=== PATIENT | male | born 1970 | race Caucasian/White ===

== ENCOUNTER 2020-06-19 11:16 | Outpatient (REF) | payer OTHER, SELFPAY ==
[2020-06-19 15:18] LABS: Alanine Aminotransferase 49 U/L (0-40); Anion Gap 10 (12-20); Aspartate Amino Transferase 34 U/L (5-37); Blood Urea Nitrogen 19 mg/dL (9-16); Calcium 8.7 mg/dL (8.4-10.2); Carbon Dioxide 32 mmol/L (22-29); Chloride 103 mmol/L (96-108); Cholesterol 255 mg/dL; Estimated Glomerular Filt Rate > 60; Glucose Fasting 90 mg/dL (60-99); HDL Cholesterol 45 mg/dL; LDL Cholesterol Calculated 134 mg/dl; Potassium 4.3 mmol/l (3.3-5.1); Sodium 141 mmol/L (135-145); Triglycerides 381 mg/dL
[2020-06-19 15:27] LABS: TSH reflex Free T4 1.56 mIU/mL (0.32-4.0)
[2020-06-24 12:02] LABS: Testosterone, Total 9 ng/dL (250-1100)
== END 2020-06-19 11:17 | disposition home or self-care (01) ==
LOC: HO.HMGCLDS 11:16
PROVIDERS: PCP Internal Medicine; Visit Provider Internal Medicine
DX: Z00.01 Encounter for general adult medical examination with abnormal findings (principal); R68.82 Decreased libido; F90.0 Attention-deficit hyperactivity disorder, predominantly inattentive type; F11.282 Opioid dependence with opioid-induced sleep disorder
CPT/HCPCS: 80048; 80061; 84403; 84443; 84450; 84460

== ENCOUNTER → 2020-09-11 11:19 | Outpatient (BNVA) | payer OTHER, SELFPAY | PROVIDERS: Visit Provider Urology ==

== ENCOUNTER 2020-11-23 11:14 | Outpatient (REF) | payer OTHER, SELFPAY ==
[2020-11-23 14:45] LABS: Cholesterol 186 mg/dL; HDL Cholesterol 44 mg/dL; LDL Cholesterol Calculated 124 mg/dl; Triglycerides 93 mg/dL
== END 2020-11-23 11:15 | disposition home or self-care (01) ==
LOC: HO.HMGCLDS 11:14
PROVIDERS: PCP Internal Medicine; Visit Provider Internal Medicine
DX: E78.2 Mixed hyperlipidemia (principal)
CPT/HCPCS: 36415; 80061

== ENCOUNTER 2023-09-22 09:24 | Outpatient (AMB) | payer OTHER, SELFPAY ==
[2023-09-22 10:50] VITALS: BP 142/80; PULSE 83; O2SAT 96; BMI 41.5
--- NOTE | 2023-09-22 10:50 | A.OFFPC_ITS ---
Vital Signs 09/22/23 10:50 Height 5 ft 7 in Weight 265 lb BMI 41.5 BP 142/80 H Blood Pressure Location Lt brachial Position Sitting Pulse 83 Pulse Source Pulse Oximeter Pulse Oximetry (%) 96 Oxygen Delivery Method Room Air Intake Visit Reasons: Follow up Intake Note: Pt is here today for his medication reivew f/u adnd HTN Allergies hydrochlorothiazide Adverse Reaction (Verified 09/22/23 11:30) itchy throat Medication List - Last Reconciled 09/22/23 by Kristal Pinon MD amlodipine 5 mg PO DAILY cholecalciferol (vitamin D3) 50 mcg PO DAILY clonidine HCl 0.2 mg PO BID furosemide 40 mg PO DAILY methadone 100 mg PO DAILY oxybutynin chloride 5 mg PO TID testosterone 1 packet transdermal DAILY Tobacco use date assessed: 09/22/23 Dental Screening Dental Screen Date: 09/22/23 Did you have a dental visit in the last 12 months?: No Was dental information given to patient?: No HPI Follow up HPI Details 52-year-old male, here today for follow- up after recent admission at [facility] for fluid overload, suspect acute heart failure. He presentedat the ER for with exertional dyspnea associated with orthopnea and bilateral lower extremity leg swelling and weight gain. Denied any episodes of chest pain, no fever or cough, but has been having difficulty sleeping for longer than 1 and half to 2 hours before waking up feeling breathless. He also has been told that he snores a lot and has had witnessed episodes of stopping breathing when sleeping. He was started on IV Lasix and prescribed or p.o. Lasix 40 mg twice a day for 2 days and then once a day . He has hypertension, obesity, marijuana use and history of polysubstance abuse currently on methadone clinic. He was discharged on Lasix and continued on amlodipine 5 mg daily for blood pressure control. He was referred to Dr. Yaya kerns for cardiology follow-up and outpatient echocardiogram, needs a referral. Is currently in the methadone clinic, complains of constipation, would like to see if he can be placed on something else other than Senokot and [id number] Colace which she has been using, and has not been helping. He also has been complaining for excessive sweating, previously placed by his doctor at the methadone clinic on oxybutynin for hyperhidrosis which has been helping, would like to see if he can get a refill. [facility] Medical History (Updated 09/22/23 @ 12:09 by Kristal Pinon MD) Constipation due to opioid therapy Acute heart failure Hyperhidrosis Acquired deformity of nail Fatigue Excessive daytime sleepiness Sleep disturbance HTN (hypertension) Nasal congestion with rhinorrhea Conjunctivitis of both eyes History of opioid abuse Low testosterone level in male Mixed hyperlipidemia Attention deficit disorder Surgical History History of knee surgery Family History Father Hypogonadism Mother SAIRA (generalized anxiety disorder) Mental health disorder Brother No problems noted. Maternal Aunt Mental health disorder Social History Housing: House Alcohol intake: current Alcohol intake frequency: a few times a month Patient Tobacco Use Status: Former Tobacco user Years Smoked: 20 yrs e-Cigarette/Vaping Use: Currently Using service: No Current occupational status: employed Cognitive needs: No Hearing needs: No Vision needs: No Questionnaire PHQ-9 Over the last 2 weeks, how often have you been bothered by any of the following problems? 1. Little interest or pleasure in doing things: several days 2. Feeling down, depressed, or hopeless: not at all 3. Trouble falling or staying asleep, or sleeping too much: nearly every day 4. Feeling tired or having little energy: more than half the days 5. Poor appetite or overeating: more than half the days 6. Feeling bad about yourself - or that you are a failure or have let yourself or your family down: several days 7. Trouble concentrating on things, such as reading the newspaper or watching television: several days 8. Moving or speaking so slowly that other people could have noticed. Or the opposite - being so fidgety or restless that you have been moving around a lot more than usual: not at all 9. Thoughts that you would be better off or of hurting yourself in some way: not at all Total score: 10 Depression Screening Interpretation: Positive Depression Screening Follow-up: Existing condition, In treatment and Community Mental Health Worker F/U Depression Screening Done: Yes 98179 - PHQ-9 Billing: Yes Source: Developed by Drs. Siva Monroy, Lawanda Martinez, Solo Silver and colleagues, with an educational andreia from [employer]. Thrive Questionnaire Date Thrive assessed: 09/22/23 I am a: Patient What is your living situation today?: I have a steady place to live Within the past 12 months, did the food you bought not last and you didn't have the money to get more?: Never true Within the past 12 months, did you worry whether your food would run out before you got money to buy more?: Never true Do you have trouble paying for medicines?: No Do you have trouble getting transportation to medical appointments?: Yes Do you have trouble paying your heating and electricity bill?: No Do you have trouble taking care of your child, family member or friend?: No Do you have trouble with day-to-day activities such as bathing, preparing meals, shopping, managing finances, etc.?: No Are you currently unemployed and looking for a job?: No Are you interested in more education?: No THRIVE Score: 1 AUDIT C Alcohol Use Questionnaire (AUDIT-C) 1. How often do you have a drink containing alcohol?: Never Total Score: 0 SAIRA-7 AMB Questionnaire SAIRA-7 Date SAIRA - 7 assessed: 09/22/23 Feeling nervous, anxious, or on edge: 1 = Several days Not being able to stop or control worryin = Several days Worrying too much about different things: 1 = Several days Trouble relaxin = More than half the days Being so restless that it is hard to sit still: 2 = More than half the days Becoming easily annoyed or irritable: 0 = Not at all Feeling afraid as if something awful might happen: 1 = Several days Total SAIRA-7 score (0-4 normal; 5-9 mild; 10-14 moderate; 15-21 severe): 8 Source: Developed by Drs. Siva Monroy, Lawanda Martinez, Solo Silver and colleagues, with an educational andreia from [employer]. SAIRA-7 Assessment Billing SAIRA-7 Assessment Tool: SAIRA-7 Assessment 14680 Review of Systems Const Reports no additional complaints Eyes Denies change in vision ENT Denies nasal congestion, Denies post nasal drip, Denies sinus pain, Denies sinus pressure and Denies sore throat Card Denies chest pain, Denies rapid heart rate and Denies dyspnea Resp Denies cough and Denies dyspnea GI Reports no additional complaints Musc Reports no additional complaints Neuro Reports no additional complaints Psych Reports no additional complaints Endo Reports no additional complaints Feliciano/Lymph Reports no additional complaints Physical exam (Primary Care) Vital Signs: Last Vital Signs Pulse 83 09/22/23 10:50 BP 142/80 H 09/22/23 10:50 Pulse Ox 96 09/22/23 10:50 Oxygen Delivery Method Room Air 09/22/23 10:50 BMI result Body Mass Index 41.5 BMI Assessment/Plan discussion: High BMI High, discussed plan: lifestyle, weight reduction, dietary and physical activity Tobacco/Smoking Status: Tobacco use Status Tobacco use date assessed 09/22/23 09/22/23 11:03 Patient Tobacco Use Status Former Tobacco user 09/22/23 10:51 e-Cigarette/Vaping Use Currently Using 09/22/23 10:51 PHQ-9: PHQ-9 Score PHQ-9: Total score 10 09/24/23 20:59 Depression Screening Interpretation: Positive Depression Screening Follow-up: Existing condition, In treatment and Community Mental Health Worker F/U Thrive Assessment: Date of Thrive Assessment Date Thrive assessed 09/22/23 09/22/23 14:18 Const Other: Obese, Alert oriented x3, no acute cardiorespiratory distress, ambulatory normal gait Orientation/consciousness: patient oriented x3 HENMT Other: Normocephalic atraumatic, sinus nontender to palpation, moist oral mucosa been normal refer Neck Other: Supple, full range of motion, no lymphadenopathy palpated , thyroid gland nonpalpable Resp Other: Clear to auscultation bilaterally Cardio Other: S1-S2 present regular rate and rhythm GI Other: Normal bowel sounds, soft, nontender with no mass palpated Skin Nails: yellow and thickened Neuro General: patient oriented x3, gait normal, moves all extremities and no focal motor deficits Extrem General: Yes full ROM, Yes no joint enlargement, Yes no clubbing, cyanosis or edema, Yes no calf tenderness and Yes normal gait Psych Appearance: grossly normal Mental Status: mental status grossly normal Speech and movement: Normal speech and movement present Affect: normal affect Attitude: cooperative Thought process: Normal thought process present Assessment and Plan Assessment & Plan (1) HTN (hypertension): Code(s): I10 - Essential (primary) hypertension Plan: Blood pressure still elevated and not at goal. Continued on furosemide 40 mg daily, amlodipine 5 mg once a day and started on losartan 25 mg once a day. Patient also on clonidine which will help lower blood pressure. Referred to Dr. Eduard Landaverde , for evaluation of possible heart failure. (2) Sleep disturbance: Code(s): G47.9 - Sleep disorder, unspecified Plan: Referred to sleep medicine clinic for evaluation for obstructive sleep apnea. Weight loss through diet and exercise strongly advised. (3) Hyperhidrosis: Code(s): R61 - Generalized hyperhidrosis Plan: Prescribed oxybutynin by his provider at the methadone Clinic, refill sent (4) Excessive daytime sleepiness: Code(s): G47.19 - Other hypersomnia Plan: Referred to sleep medicine clinic in [facility] for further evaluation of sleep apnea (5) Witnessed apneic spells: Code(s): R06.81 - Apnea, not elsewhere classified Plan: Referred for sleep study (6) Constipation due to opioid therapy: Code(s): K59.03 - Drug induced constipation; T40.2X5A - Adverse effect of other opioids, initial encounter Plan: Prescription sent for Amitiza 6 8 mcg per tablet to take once a day. Advised regular exercise, stay well-hydrated, and eat a high-fiber diet Orders: Referrals Sleep Medicine Referral G47.19 - Other hypersomnia, G47.20 - Circadian rhythm sleep disorder, unspecified type, R06.81 - Apnea, not elsewhere classified, R06.83 - Snoring Cardiology Referral G47.9 - Sleep disorder, unspecified, I50.9 - Heart failure, unspecified Medications: New oxybutynin chloride 5 mg PO TID 90 tabs 0RF R61 - Generalized hyperhidrosis lubiprostone (Amitiza) 8 mcg PO DAILY 30 caps 0RF K59.03 - Drug induced constipation, T40.2X5A - Adverse effect of other opioids, initial encounter losartan 25 mg PO DAILY 30 tabs 0RF Coding Level of Care Code Est Pt Level 4 (93856) Diagnoses HTN (hypertension) I10 Sleep disturbance G47.9 Hyperhidrosis R61 Excessive daytime sleepiness G47.19 Witnessed apneic spells R06.81 Constipation due to opioid therapy K59.03; T40.2X5A Additional Codes SAIRA-7 Assessment Billing - SAIRA-7 Assessment Tool: SAIRA-7 Assessment 20719 ([id number])
== END 2023-09-22 12:13 | disposition home or self-care (01) ==
PROVIDERS: PCP Internal Medicine; Visit Provider Internal Medicine
DX: I10 Essential (primary) hypertension (principal); G47.9 Sleep disorder, unspecified; R61 Generalized hyperhidrosis; G47.19 Other hypersomnia; R06.81 Apnea, not elsewhere classified; K59.03 Drug induced constipation; T40.2X5A Adverse effect of other opioids, initial encounter
CPT/HCPCS: 99214

== ENCOUNTER 2023-10-19 10:42 | Outpatient (AMB) | payer OTHER, SELFPAY ==
--- NOTE | 2023-10-19 10:56 | MHC.OFFVIS ---
Intake Vital Signs 10/19/23 11:00 Height 5 ft 7 in Weight 250 lb BMI 39.2 BP 120/82 Blood Pressure Location Rt brachial Position Sitting Pulse 55 Pulse Source Pulse Oximeter Pulse Oximetry (%) 99 Oxygen Delivery Method Room Air Intake Visit Reasons: 09/26 -LTR /10/04 LVM-LTR) INP-Snoring/Apnea-Conf Intake Note: Patient presents for apnea and snoring. Patient has problems falling asleep and having a lot of anxiety.daytime drowsiness due to not sleeping well. Allergies hydrochlorothiazide Adverse Reaction (Verified 10/19/23 11:02) itchy throat Medication List - Last Reconciled 10/19/23 by Lucita Guido, CARINA amlodipine 5 mg PO DAILY cholecalciferol (vitamin D3) 50 mcg PO DAILY clonidine HCl 0.2 mg PO BID furosemide 40 mg PO DAILY losartan 25 mg PO DAILY lubiprostone (Amitiza) 8 mcg PO DAILY methadone 100 mg PO DAILY oxybutynin chloride 5 mg PO TID testosterone 1 packet transdermal DAILY testosterone cypionate mg IM HPI HPI Comments History of Present Illness Details 52yr-old male presents for new in-person patient visit for sleep consultation. Patient reports he has had sleep difficulties for a long time, however they are worse in the last few months but he is unsure why. Past medical history includes ADD, anxiety, tinnitus, HTN. Sleep questionnaire: Have you ever been diagnosed with a sleep disorder? No Have you ever had a sleep study in the past? No Have you ever been treated for a sleep disorder? Sleep medication trials. Do you take medications for a sleep disorder? Clonidine, not helping sleep, but helps his anxiety. Are you melatonin did not help. Trazodone was not tolerated. Patient endorses: Difficulty falling asleep- at times due to ruminating thoughts, difficulty staying asleep, snoring, 3-5 arousals per night, some gasping arousals, vivid dreams, excessive daytime sleepiness, fatigue, daytime naps, restless leg symptoms, some light headaches in the morning, leg cramping. Patient denies no witnessed apneas, GERD, parasomnias, hallucinations, sleep paralysis, drop attacks, cataplexy symptoms. Sleep hygiene questionnaire: What is your usual sleep routine? Usual bedtime is at 22:00; Usual wakeup time is at 6-7am. Do you take naps? Sometimes Is your sleep environment cool, dark, and quiet? Yes. Uses aroma therapy. Currently living in sober housing. Do you exercise? Walks a lot at work. Do you take caffeine or other stimulants? Light morning caffeine use. What is your work schedule? Day shift. Hypersomnolence questionnaire: Do you easily fall asleep when inactive? Yes Have you ever had episodes of sudden weakness? Denies Have you ever had episodes of sudden weakness associated with strong emotions? Denies [facility] Medical History (Updated 11/12/23 @ 16:45 by CARINA Zuluaga) Constipation due to opioid therapy Acute heart failure Hyperhidrosis Acquired deformity of nail Fatigue Excessive daytime sleepiness Sleep disturbance HTN (hypertension) Nasal congestion with rhinorrhea Conjunctivitis of both eyes History of opioid abuse Low testosterone level in male Mixed hyperlipidemia Attention deficit disorder Surgical History History of knee surgery Family History Father Hypogonadism Mother SAIRA (generalized anxiety disorder) Mental health disorder Brother No problems noted. Maternal Aunt Mental health disorder Social History Housing: House Alcohol intake: current Alcohol intake frequency: a few times a month Patient Tobacco Use Status: Former Tobacco user Years Smoked: 20 yrs e-Cigarette/Vaping Use: Currently Using service: No Current occupational status: employed Cognitive needs: No Hearing needs: No Vision needs: No Questionnaire [place] Sleepiness Scale Questions Sitting and reading: high chance of dozing Watching TV: high chance of dozing Sitting inactive in a theater, movie etc.: high chance of dozing As a passenger in a car for an hour without break: would never doze Lying down in the afternoon when circumstances permit: high chance of dozing Sitting and talking to someone: would never doze Sitting quietly after lunch without alcohol: high chance of dozing In a car, while stopped for a few minutes in the traffic: would never doze ESS < 10: normal, ESS > 12: pathologic: 15 Review of Systems Const All systems reviewed & are unremarkable except as noted in HPI and below Physical Exam Vital Signs: Last Vital Signs Pulse 55 10/19/23 11:00 BP 120/82 10/19/23 11:00 Pulse Ox 99 10/19/23 11:00 Oxygen Delivery Method Room Air 10/19/23 11:00 BMI result Body Mass Index 39.2 Const General: no acute distress Orientation/consciousness: patient oriented x3 HEENT Other: Mallampati stage IV Resp Effort & Inspection: able to speak in complete sentences Neuro General: patient oriented x3 Psych Mental Status: mental status grossly normal Speech and movement: Clear speech present Attitude: cooperative Assessment & Plan Assessment & Plan (1) Excessive daytime sleepiness: Comment: ESS 15 Code(s): G47.19 - Other hypersomnia (2) Sleep disturbance: Code(s): G47.9 - Sleep disorder, unspecified (3) Fatigue: Code(s): R53.83 - Other fatigue Plan Patient is advised to undergo HST to assess for sleep apnea. Information shared on resources to help further improve sleep hygiene. May retry melatonin 5-10mg qd, try taking in the evening after dinner. Future considerations: CBT-i. Patient seen in collaboration with Dr. Summer Egan. Orders: Orders RT home sleep study 10/19/23 G47.19 - Other hypersomnia, G47.9 - Sleep disorder, unspecified, R53.83 - Other fatigue Telehealth Telehealth Location of provider rendering services: practice address Location of patient: address on file Patient Identification confirmed using: Name, : Yes Telehealth method: voice only Patient verbally consented to treatment: Yes Patient verbally consented to billing insurance company: Yes Patient informed of any privacy concerns related to visit: Yes Coding Level of Care Code New Pt Level 4 (24283) Diagnoses Excessive daytime sleepiness G47.19 Sleep disturbance G47.9 Fatigue R53.83
[2023-10-19 11:00] VITALS: BP 120/82; PULSE 55; O2SAT 99; BMI 39.2
== END 2023-10-19 12:07 | disposition home or self-care (01) ==
PROVIDERS: PCP Internal Medicine; Visit Provider Nurse Practitioner Family
DX: G47.19 Other hypersomnia (principal); G47.9 Sleep disorder, unspecified; R53.83 Other fatigue
CPT/HCPCS: 99204

== ENCOUNTER → 2023-10-19 10:42 | Outpatient (BNVA) | payer OTHER, SELFPAY | PROVIDERS: PCP Internal Medicine; Visit Provider Nurse Practitioner Family ==

== ENCOUNTER 2023-12-21 13:19 | Outpatient (AMB) | payer OTHER, SELFPAY ==
[2023-12-21 13:40] VITALS: BP 120/80; PULSE 83; O2SAT 94; BMI 37.4
--- NOTE | 2023-12-21 13:40 | MHC.PC.OV ---
Vital Signs 12/21/23 13:40 Height 5 ft 7 in Weight 239 lb BMI 37.4 BP 120/80 Blood Pressure Location Lt brachial Position Sitting Pulse 83 Pulse Source Pulse Oximeter Pulse Oximetry (%) 94 Oxygen Delivery Method Room Air Intake Visit Reasons: Weight loss medication Intake Note: Pt is here today c/o of cough congestion and wants to discuss weight loss med Allergies hydrochlorothiazide Adverse Reaction (Verified 12/21/23 14:19) itchy throat Medication List - Last Reconciled 12/21/23 by Kristal Pinon MD amlodipine 5 mg PO DAILY azithromycin For 250 mg dose pack: take 500 mg today (day 1), then 250 mg for 4 days (days 2-5) PO cholecalciferol (vitamin D3) 50 mcg PO DAILY clonidine HCl 0.2 mg PO BID furosemide 40 mg PO DAILY glycopyrrolate 1 mg PO BID PRN losartan 25 mg PO DAILY lubiprostone (Amitiza) 8 mcg PO DAILY methadone 100 mg PO DAILY oxybutynin chloride 5 mg PO TID testosterone cypionate mg IM Wegovy (semaglutide (weight loss)) 0.25 mg (0.5 mL) subcut QWEEK 30 days NS Tobacco use date assessed: 12/21/23 Dental Screening Dental Screen Date: 12/21/23 Did you have a dental visit in the last 12 months?: No Was dental information given to patient?: Patient declined HPI Weight loss medication HPI Details 53-year-old male with obesity, BMI of 37.4, here today wanting to see if he can be placed on Wegovy. He has been following a good diet, and has been walking daily, able to lost approximately 16 lb in the last month but has plateaued. Complains of hyperhidrosis, would like to see if he can get prescription for glycopyrrolate, has been on it in the past and has helped Has 2 weeks' history of cough and chest congestion now accompanied by shortness of breath on exertion and wheezing. Has been taking [id number] Mucinex which affords only temporary relief. Denies any accompanying fever, no lightheadedness. [facility] Medical History (Updated 12/21/23 @ 14:26 by Kristal Pinon MD) Obesity Constipation due to opioid therapy Acute heart failure Hyperhidrosis Acquired deformity of nail Fatigue Excessive daytime sleepiness Sleep disturbance HTN (hypertension) Nasal congestion with rhinorrhea Conjunctivitis of both eyes History of opioid abuse Low testosterone level in male Mixed hyperlipidemia Attention deficit disorder Surgical History History of knee surgery Family History Father Hypogonadism Mother SAIRA (generalized anxiety disorder) Mental health disorder Brother No problems noted. Maternal Aunt Mental health disorder Social History Housing: House Alcohol intake: current Alcohol intake frequency: a few times a month Patient Tobacco Use Status: Former Tobacco user Years Smoked: 20 yrs e-Cigarette/Vaping Use: Currently Using service: No Current occupational status: employed Cognitive needs: No Hearing needs: No Vision needs: No Questionnaire Thrive Questionnaire Date Thrive assessed: 09/22/23 SAIRA-7 AMB Questionnaire SAIRA-7 Date SAIRA - 7 assessed: 09/22/23 Source: Developed by Drs. Siva Monroy, Lawanda Martinez, Solo Silver and colleagues, with an educational andreia from [employer]. Review of Systems Const Reports no additional complaints and Reports excessive sweating Eyes Denies change in vision ENT Denies nasal congestion, Denies post nasal drip, Denies sinus pain and Denies sore throat Card Denies chest pain and Denies dyspnea Resp Reports as per HPI and Denies dyspnea Musc Reports no additional complaints Neuro Reports no additional complaints Psych Reports no additional complaints Endo Reports no additional complaints and Reports excessive sweating Feliciano/Lymph Reports no additional complaints Physical exam (Primary Care) Vital Signs: Last Vital Signs Pulse 83 12/21/23 13:40 BP 120/80 12/21/23 13:40 Pulse Ox 94 12/21/23 13:40 Oxygen Delivery Method Room Air 12/21/23 13:40 BMI result Body Mass Index 37.4 Tobacco/Smoking Status: Tobacco use Status Tobacco use date assessed 12/21/23 12/21/23 13:45 Patient Tobacco Use Status Former Tobacco user 12/21/23 13:45 e-Cigarette/Vaping Use Currently Using 12/21/23 13:45 Thrive Assessment: Date of Thrive Assessment Date Thrive assessed 09/22/23 12/21/23 13:45 Const Other: Obese, Alert oriented x3, no acute cardiorespiratory distress, ambulatory normal gait Orientation/consciousness: patient oriented x3 HENMT Other: Normocephalic atraumatic, sinus nontender to palpation, moist oral mucosa been normal refer Neck Other: Supple, full range of motion, no lymphadenopathy palpated , thyroid gland nonpalpable Resp Effort & Inspection: normal respiratory effort and able to speak in complete sentences Auscultation: wheezes scattered wheezes Cardio Other: S1-S2 present regular rate and rhythm GI Other: Normal bowel sounds, soft, nontender with no mass palpated Neuro General: patient oriented x3, gait normal, moves all extremities and no focal motor deficits Extrem General: Yes full ROM, Yes no joint enlargement, Yes no clubbing, cyanosis or edema, Yes no calf tenderness and Yes normal gait Psych Appearance: grossly normal Mental Status: mental status grossly normal Speech and movement: Normal speech and movement present Affect: normal affect Attitude: cooperative Thought process: Normal thought process present Assessment and Plan Assessment & Plan (1) Obesity: Code(s): E66.9 - Obesity, unspecified Qualifiers: Obesity type: due to excess calories Obesity classification: adult class 2 (BMI 35 - 39.9) Serious obesity comorbidity presence: without serious comorbidity Body mass index: BMI 37.0-37.9 Qualified Code(s): E66.09 - Other obesity due to excess calories; Z68.37 - Body mass index [BMI] 37.0-37.9, adult Plan: Started on Wegovy, 0.25 mg subcutaneously given once a week for 4 weeks discussed possible side effects of medication, discontinue if any severe abdominal pain, nausea vomiting jaundice develops. Combined with diet and exercise, see me back for follow-up in 4 weeks after starting medication (2) Hyperhidrosis: Code(s): R61 - Generalized hyperhidrosis Plan: Prescription sent for glycopyrrolate 1 mg per tablet to take 1 tablet twice a day as needed for excessive sweating (3) Acute bronchitis: Code(s): J20.9 - Acute bronchitis, unspecified Qualifiers: Bronchitis organism: unspecified organism Qualified Code(s): J20.9 - Acute bronchitis, unspecified Plan: Prescription sent for azithromycin Dosepak, to take as directed, return to clinic if after a week no improvement of symptoms Medications: New Wegovy (semaglutide (weight loss)) administer weeks 1 through 4 of therapy 0.25 mg (0.5 mL) subcut QWEEK 30 days 2 mL 0RF NS E66.9 - Obesity, unspecified glycopyrrolate 1 mg PO BID PRN 60 tabs 0RF secretions azithromycin For 250 mg dose pack: take 500 mg today (day 1), then 250 mg for 4 days (days 2-5) PO 6 tabs 0RF Coding Level of Care Code Est Pt Level 4 (23635) Diagnoses Class 2 obesity due to excess calories without serious comorbidity with body mass index (BMI) of 37.0 to 37.9 in adult E66.09; Z68.37 Obesity type: due to excess calories Obesity classification: adult class 2 (BMI 35 - 39.9) Serious obesity comorbidity presence: without serious comorbidity Body mass index: BMI 37.0-37.9 Hyperhidrosis R61 Acute bronchitis, unspecified organism J20.9 Bronchitis organism: unspecified organism
== END 2023-12-21 14:48 | disposition home or self-care (01) ==
PROVIDERS: PCP Internal Medicine; Visit Provider Internal Medicine
DX: E66.09 Other obesity due to excess calories (principal); Z68.37 Body mass index [BMI] 37.0-37.9, adult; R61 Generalized hyperhidrosis; J20.9 Acute bronchitis, unspecified
CPT/HCPCS: 99214

== ENCOUNTER 2025-02-04 10:11 | Outpatient (REF) | payer MEDICAID, SELFPAY ==
[2025-02-04 13:03] LABS: MANUAL DIFF FLAG NO
[2025-02-04 13:15] LABS: Hematocrit 42.0 % (42.0-52.0); Hemoglobin 13.7 g/dl (14.0-18.0); Imm Gran Abs Auto 0.03 X10*3/uL (0.00-0.03); Imm Gran Pct Auto 0.6 % (0.0-0.4); Lymphocytes Absolute Auto 2.0 X10*3/uL (1.2-4.9); Mean Corpuscular HGB Conc 32.6 g/dl (31.0-36.0); Mean Corpuscular Hemoglobin 31.4 pg (27.0-33.0); Mean Corpuscular Volume 96.3 fL (80.0-98.0); NRBC Abs Auto 0.000 X10*3/uL (0.0-0.012); NRBC Pct Auto 0.0 /100WBC (0.0-0.2); Platelet Count 229 X10*3/uL (160-400); Red Blood Count 4.36 X10*6/uL (4.60-5.80); White Blood Count 4.9 X10*3/uL (4.8-10.8)
[2025-02-04 13:51] LABS: Alanine Aminotransferase 26 U/L (0-40); Albumin Level 4.7 g/dL (3.5-5.0); Alkaline Phosphatase 57 U/L (39-117); Anion Gap 14 (12-20); Aspartate Amino Transferase 25 U/L (5-37); Blood Urea Nitrogen 17 mg/dL (9-16); Calcium 9.4 mg/dL (8.4-10.2); Carbon Dioxide 33 mmol/L (22-29); Chloride 100 mmol/L (96-108); Cholesterol 238 mg/dL (<200); Estimated Glomerular Filt Rate > 60; HDL Cholesterol 52 mg/dL (>40); Potassium 4.1 mmol/L (3.3-5.1); Sodium 143 mmol/L (135-145); Total Protein 7.5 g/dL (6.5-8.0); Triglycerides 158 mg/dL (<150)
== END 2025-02-04 10:12 | disposition home or self-care (01) ==
LOC: HO.HHCL 10:11
PROVIDERS: PCP Internal Medicine; Visit Provider Internal Medicine
DX: F98.8 Other specified behavioral and emotional disorders with onset usually occurring in childhood and adolescence (principal); E78.2 Mixed hyperlipidemia; E66.09 Other obesity due to excess calories; Z68.37 Body mass index [BMI] 37.0-37.9, adult; K59.03 Drug induced constipation; T40.2X5A Adverse effect of other opioids, initial encounter; R53.83 Other fatigue; I10 Essential (primary) hypertension
CPT/HCPCS: 36415; 80053; 80061; 82306; 84443; 85025

== ENCOUNTER 2025-05-12 09:35 | Outpatient (REF) | payer MEDICAID, SELFPAY ==
--- OUTSIDE RECORDS SUMMARY | 2025-05-12 11:00 | XMS_ITS | Clinical Summary ---
Author Organization [employer] [facility] Address [address] [place] [address] Care Team Providers Care Tight Cooper Name Role Phone Unavailable Primary Care Provider Unavailabl e Encounters Date Type Department Care Team Description 04/09/2025 Population Health Risk Score [facility] (C3) Department [address] [place] [address] Provider, Population Health Generic from Last 3 Months Social History Tobacco Use Types Packs/Day Years Used Date Smoking Tobacco: Never Assessed Sex and Gender Information Value Date Recorded Sex Assigned at Not on file Legal Sex Male 2:42 AM EDT Gender Identity Not on file Sexual Orientation Not on file Plan of Treatment Health Maintenance Due Date Last Done Comments CT Colonography 1971 Colonoscopy 1971 Colorectal Cancer Screening 1971 Depression Screening 1971 FIT DNA/Cologuard 1971 FIT 1971 FOBT 1971 HIV Screening 1971 Lipid Panel 1971 SDOH Screening 1971 Sigmoidoscopy 1971 Disability Screening 1971 Alcohol/Substance Use Screening 1983 Tobacco Screening 1983 Hepatitis C Screening 11/15/1989 DTaP/Tdap/Td Vaccines (1 - Tdap) 11/15/1990 Hepatitis B Vaccines (1 of 3 - 19+ 3-dose series) 11/15/1990 Pneumococcal Vaccine: 50+ Ye ars (1 of 1 - PCV) 11/15/2021 Zoster Vaccines (1 of 2) 11/15/2021 COVID-19 Vaccine (1 - 2023-2 5 season) 2025 Influenza Vaccine (#1) 2025 RSV Patients and Pa tients Aged 60 years or older (1 - 1-dose 75+ series) 11/15/2046 HIB Vaccines Aged Out No longer eligi ble based on patient's age to complete this topic HPV Vaccines Aged Out No longer eligi ble based on patient's age to complete this topic Hepatitis A Vaccines Aged Out No long er eligible based on patient's age to complete this topic IPV Vaccines Aged Out No longer eligi ble based on patient's age to complete this topic Meningococcal B Vaccine Aged Out No l onger eligible based on patient's age to complete this topic Meningococcal Vaccine Aged Out No saad asad eligible based on patient's age to complete this topic RSV under 20 months Aged Out No longe r eligible based on patient's age to complete this topic Rotavirus Vaccines Aged Out No longer eligible based on patient's age to complete this topic
[2025-05-12 11:24] LABS: MANUAL DIFF FLAG NO
[2025-05-12 11:33] LABS: Hematocrit 39.6 % (42.0-52.0); Hemoglobin 13.0 g/dl (14.0-18.0); Imm Gran Abs Auto 0.01 X10*3/uL (0.00-0.03); Imm Gran Pct Auto 0.2 % (0.0-0.4); Lymphocytes Absolute Auto 2.9 X10*3/uL (1.2-4.9); Mean Corpuscular HGB Conc 32.8 g/dl (31.0-36.0); Mean Corpuscular Hemoglobin 30.4 pg (27.0-33.0); Mean Corpuscular Volume 92.5 fL (80.0-98.0); NRBC Abs Auto 0.000 X10*3/uL (0.0-0.012); NRBC Pct Auto 0.0 /100WBC (0.0-0.2); Platelet Count 244 X10*3/uL (160-400); Red Blood Count 4.28 X10*6/uL (4.60-5.80); White Blood Count 5.9 X10*3/uL (4.8-10.8)
[2025-05-12 11:48] LABS: Cholesterol 195 mg/dL (<200); HDL Cholesterol 53 mg/dL (>40); Triglycerides 87 mg/dL (<150)
== END 2025-05-12 09:36 | disposition home or self-care (01) ==
LOC: HO.HHCL 09:35
PROVIDERS: PCP Internal Medicine; Visit Provider Internal Medicine Endocrinology, Diabetes & Metabolism
DX: Z13.89 Encounter for screening for other disorder (principal)
CPT/HCPCS: 36415; 80061; 84403; 85025

== ENCOUNTER 2025-07-29 08:37 | Outpatient (REF) | payer MEDICAID, SELFPAY ==
--- OUTSIDE RECORDS SUMMARY | 2025-07-29 08:51 | XMS_ITS | Clinical Summary ---
Author Organization [employer] Address [address] [place] [address] Care Team Providers Care Ramp Manager Name Role Phone Pratibha Padron NP Primary Care Provider [phone] Allergies Active Allergy Reactions Criticality Noted Date Comments Hydrochlorothiazide Itching,Cough Medium 07/23/2025 Medications methadone (Dolophine) 10 MG/5ML solution Take 145 mg by mouth in the morning. Active oxybutynin (Ditropan) 5 MG tablet Take 1 tablet (5 mg) by mouth 3 times daily. 90 tablet 1 06/20/2025 11:49 AM EST 5 06/18/20 26 Active amLODIPine (Norvasc) 5 MG tablet Take 1 tablet (5 mg) by mouth Once per day. 30 tablet 1 06/20/2025 11:49 AM EST 5 06/18/20 26 Active propranolol (Inderal) 20 MG tablet Take 1 tablet by mouth if needed in the morning and at bedtime for anxiety. 5 Active fluvoxaMINE (Luvox) 25 MG tablet Take 25 mg by mouth at bedtime. 5 Active losartan (Cozaar) 25 MG tablet Take 1 tablet (25 mg) by mouth Once per day. 30 tablet 1 5 07/23/20 25 Discontinu ed(Therapy completed) Active Problems Problem Noted Date Diagnosed Date Hypogonadism in male 07/23/2025 Assessment & Plan (07/23/2025 11:56 AM EST): - Hypogonadism reported by patient, with longstanding low testosterone production. - Referral to endocrinology for dose determination and management of testosterone replacement therapy. Ordered baseline testosterone level. Hyperhidrosis 06/18/2025 HTN (hypertension) 06/18/2025 Opioid dependence, uncomplicated (CMS/HCC) 06/18 Former smoker 06/18/2025 Low testosterone in male 06/18/2025 Assessment & Plan (07/23/2025 11:56 AM EST): Low testosterone in male: - Referral to endocrinology for evaluation and management of testosterone replacement therapy. Ordered baseline testosterone level. Orders: Testosterone, Free (Dialysis) And Total, MS; Future Anxiety 06/18/2025 Assessment & Plan (07/23/2025 11:56 AM EST): - Anxiety and depression managed with propranolol and fluvoxamine, with improvement in symptoms. -Meds managed by psychiatry. Pt sees a counselor at [facility] - Discussed behavioral health resources and offered referral for additional therapy if needed. Encounters Date Type Department Care Team Description 07/23/2025 9:00 AM EST Office Visit [facility] [address] [place] [phone] Pratibha Padron NP Healthcare maintenance (Primary Dx); Encounter for immunization; Routine screening for STI (sexually transmitted infection); Class 1 obesity with serious comorbidity and body mass index (BMI) of 31.0 to 31.9 in adult, unspecified obesity type; Lipid screening; Dietary counseling; Exercise counseling; Low testosterone in male; Hypogonadism in male; Anxiety 07/23/2025 Travel 07/22/2025 Telephone [facility] [address] [place] [phone] Pratibha Padron NP Chart Prep 06/18/2025 10:00 AM EST Office Visit [facility] [address] [place] [phone] Joce Liu MD Hyperhidrosis (Primary Dx); Hypertension, unspecified type; Opioid dependence, uncomplicated (CMS/HCC) (HCC); Former smoker; Low testosterone in male; Anxiety 06/18/2025 Travel 06/18/2025 Telephone [facility] [address] [place] [phone] Pasucal Arguello MD telephone call from Last 3 Months Immunizations Immunization Administration Dates Next Due Tdap 07/23/2025 Social History Tobacco Use Types Packs/Day Years Used Date Smoking Tobacco: Former Cigarettes Passive Smoke Exposure: Past Smokeless Tobacco: Never Tobacco Cessation:Counseling Given: Not Answered Alcohol Use Standard Drinks/Week Comments Not Currently 0 (1 standard drink = 0.6 oz pur e alcohol) Depression Answer Date Recorded Patient Health Questionnaire-9 Score 12 07/23/2025 Patient Health Questionnaire-9 Score 12 07/23/2025 Last PHQ-9: Questionnaire Data Not on file 1 09/23/2024 Housing Stability Answer Date Recorded What is your housing situation today? I have housing today, but I am worried about losing housing in the future 07/23/[address] you li ve. Do you have problems with any of the following? None of the above 07/23/2025 Food Insecurity Answer Date Recorded Within the past 12 months, y ou worried that your food would run out before you got money to buy more: Never True 06/18/2025 Within the past 12 months,th e food you bought just didn't last and you didn't have enough money to get more: Never True 07/2025 Transportation Answer Date Recorded In the past 12 months, has l ack of transportation kept you from medical appts, meetings, work or from getting things needed for daily living? Yes, it has kept me from non-medical meetings, work, or getting things that I need 07/23/2025 Utilities Answer Date Recorded In the past 12 months, has t he electric, gas, oil or water company threatened to shut off services in your home? No 06/18/2025 Depression Answer Date Recorded Patient Health Questionnaire-2 Score 3 07/23/2025 Internet Access Answer Date Recorded Internet Access Q1 Yes 06/18/2025 Internet Access Q2 Not on file 06/18/2025 Sex and Gender Information Value Date Recorded Sex Assigned at Male 06/18/2025 9:40 AM EST Legal Sex Male 2:42 AM EDT Gender Identity Male 06/18/2025 9:40 AM EST Sexual Orientation Straight 06/18/2025 9: 47 AM EST Last Filed Vital Signs Vital Sign Reading Time Taken Comments Blood Pressure 122/78 07/23/2025 9:00 AM EST Pulse 58 07/23/2025 9:00 AM EST Temperature 36.6 C (97.9 F) 07/23/2025 9:00 AM EST Respiratory Rate 16 07/23/2025 9:00 AM EST Oxygen Saturation 96% 07/23/2025 9:00 AM EST Inhaled Oxygen Concentration - - Weight 89.9 kg (198 lb 2 oz) 07/23/2025 9:00 AM EST Height 170.1 cm (5' 6.98 ) 07/23/2025 9:00 AM ES T Body Mass Index 31.05 07/23/2025 9:00 AM EST Plan of Treatment Upcoming Encounters Date Type Department Care Team (Late st Contact Info) Description 08/13/2025 2:00 PM EST Office Visit [facility] [address] [place], [place] [phone] Pratibha Padron, [address] [place], [place] [phone] Health Maintenance Due Date Last Done Comments CT Colonography 1971 Colonoscopy 1971 Colorectal Cancer Screening 1971 FIT DNA/Cologuard 1971 FIT 1971 FOBT 1971 HIV Screening 1971 Lipid Panel 1971 Sigmoidoscopy 1971 Hepatitis C Screening 11/15/1989 Hepatitis B Vaccines (1 of 3 - 19+ 3-dose series) 11/15/1990 Pneumococcal Vaccine: 50+ Years (1 of 1 - PCV) 11/15/2021 Zoster Vaccines (1 of 2) 11/15/2021 COVID-19 Vaccine ( - 2024-2 6 season) 2025 Influenza Vaccine (#1) 2025 Depression Monitoring 01/21/2026 07/23/2025 , 07/23/2025 Alcohol/Substance Use Screening 07/23/2026 07/23/2025 Disability Screening 07/23/2026 07/23/2025 SDOH Screening 07/23/2026 07/23/2025 Tobacco Screening 07/23/2026 07/23/2025 DTaP/Tdap/Td Vaccines (2 - T d or Tdap) 07/23/2035 07/23/2025 RSV Patients and Patients Aged 60 years or older (1 - [...] on patient's age to complete this topic Insurance [facility] C3 Care Teams Ramp Manager Relationship Specialty Start Date End Date Pratibha Padron NP [address] [place] [address] [phone] PCP - General Nurse Practitioner 07/23/25
[2025-07-29 11:21] LABS: MANUAL DIFF FLAG NO
[2025-07-29 11:34] LABS: Hematocrit 42.2 % (42.0-52.0); Hemoglobin 13.6 g/dl (14.0-18.0); Imm Gran Abs Auto 0.02 X10*3/uL (0.00-0.03); Imm Gran Pct Auto 0.3 % (0.0-0.4); Lymphocytes Absolute Auto 2.6 X10*3/uL (1.2-4.9); Mean Corpuscular HGB Conc 32.2 g/dl (31.0-36.0); Mean Corpuscular Hemoglobin 30.9 pg (27.0-33.0); Mean Corpuscular Volume 95.9 fL (80.0-98.0); NRBC Abs Auto 0.000 X10*3/uL (0.0-0.012); NRBC Pct Auto 0.0 /100WBC (0.0-0.2); Platelet Count 225 X10*3/uL (160-400); Red Blood Count 4.40 X10*6/uL (4.60-5.80); White Blood Count 6.4 X10*3/uL (4.8-10.8)
[2025-07-29 12:06] LABS: Prostate Specific Antigen 0.43 ng/mL (<0.05-4.0)
[2025-07-29 12:16] LABS: Syphilis Screen Nonreactive (Nonreactive)
[2025-07-29 12:22] LABS: HBS Num1 266.65 mIU/mL (0-7.99); HBc Num1 0.04 S/CO (0.00-0.79); HBsAGNum1 0.36 S/CO (0.00-0.99); HIV Num 1 0.07 S/CO (0.00-0.99); Hepatitis B Surface Antigen Negative (Negative); ~HepC Num1 0.11 S/CO (0.00-0.79); ~Hepatitis B Surface Antibody REACTIVE (Nonreactive); ~Hepatitis C Antibody Nonreactive (Nonreactive)
[2025-07-29 13:42] LABS: Alanine Aminotransferase 26 U/L (0-40); Albumin Level 4.0 g/dL (3.5-5.0); Alkaline Phosphatase 59 U/L (39-117); Anion Gap 13 (12-20); Aspartate Amino Transferase 28 U/L (5-37); Blood Urea Nitrogen 14 mg/dL (9-16); Calcium 8.9 mg/dL (8.4-10.2); Carbon Dioxide 28 mmol/L (22-29); Chloride 104 mmol/L (96-108); Cholesterol 285 mg/dL (<200); Estimated Glomerular Filt Rate > 60; HDL Cholesterol 52 mg/dL (>40); Potassium 4.1 mmol/L (3.3-5.1); Sodium 141 mmol/L (135-145); Total Protein 6.8 g/dL (6.5-8.0); Triglycerides 382 mg/dL (<150)
== END 2025-07-29 08:38 | disposition home or self-care (01) ==
LOC: HO.HHCL 08:37
DX: Z00.00 Encounter for general adult medical examination without abnormal findings (principal); Z11.3 Encounter for screening for infections with a predominantly sexual mode of transmission; Z11.4 Encounter for screening for human immunodeficiency virus [HIV]; Z11.59 Encounter for screening for other viral diseases; Z13.220 Encounter for screening for lipoid disorders; R79.89 Other specified abnormal findings of blood chemistry
CPT/HCPCS: 36415; 80053; 80061; 83036; 84153; 84402; 84403; 85025; 86704; 86706; 86780; 86803; 87340; 87389